=== PATIENT | male | born 1945 | race Caucasian/White ===

== ENCOUNTER 2019-04-05 15:20 | Emergency (ER) | payer MEDICARE, SELFPAY ==
[2019-04-05] VITALS (7 sets, daily range): BP systolic 135–152; BP diastolic 72–79; PULSE 60–70; RESP 12–18; TEMP 35.6; O2SAT 94–99
--- NOTE | 2019-04-05 15:30 | DI.RAD.S_ITS ---
PROCEDURE: XR CHEST 1V INDICATIONS: chest pain TECHNIQUE: One view of the chest was acquired. COMPARISON: None. FINDINGS: Surgical changes and devices: Median sternotomy. Left-sided pacer. Lungs and pleura: Lungs are clear. No pleural effusions or pneumothorax. Mediastinum: Mediastinal contours appear normal. Heart size is normal. Bones and chest wall: No suspicious bony lesions. Overlying soft tissues appear unremarkable. IMPRESSION: No acute process. Dictated by: Lauren Mckay M.D. on 04/05/2019 at 15:52 Approved by: Lauren Mckay M.D. on 04/05/2019 at 15:52
[2019-04-05 15:41] LABS: Add Manual Diff / Slide Review NO; Basophils Absolute Auto 100 /uL (0-100); Basophils Percent Auto 0.8 % (0-2); Eosinophils Absolute Auto 100 /uL (0-450); Eosinophils Percent Auto 1.4 % (2-4); Hematocrit 44.6 % (41-53); Hemoglobin 15.2 g/dL (13.5-17.5); Lymphocytes Absolute Auto 1900 /uL (1100-4500); Lymphocytes Percent Auto 22.9 % (25-40); Mean Corpuscular HGB Conc 34.1 % (30-36); Mean Corpuscular Volume 93.8 fL (80-100); Monocytes Absolute Auto 800 /uL (0-900); Monocytes Percent Auto 9.3 % (3-14); Neutrophils Absolute Auto 5500 /uL (1500-7000); Neutrophils Percent Auto 65.6 % (50-75); Platelet Count 187 X10^3/uL (150-400); Red Blood Cell Count 4.75 X10^6/uL (4.5-5.9); Red Cell Distribution Width 13.3 % (11.6-14.8); White Blood Cell Count 8.4 X10^3/uL (4.5-11.0)
[2019-04-05 15:44] LABS: INR 1.1 (0.9-1.3)
[2019-04-05 15:49] LABS: Alanine Aminotransferase 39 IU/L (21-72); Albumin Globulin Ratio 1.4 (1.0-2.8); Alkaline Phosphatase 63 U/L (38-126); Aspartate Aminotransferase 52 IU/L (17-59); BUN Creatinine Ratio 27.5 (6-22); Bilirubin Total 1.1 mg/dL (0.2-1.3); Blood Urea Nitrogen 22 mg/dL (9-20); Calcium 9.9 mg/dL (8.4-10.2); Carbon Dioxide 24 mmol/L (22-32); Chloride 103 mmol/L (98-107); Creatine Kinase 293 U/L (55-170); Estimated Glomerular Filt Rate > 60.0 mL/min (>60); Globulin 3.6 g/dL (1.7-4.1); Glucose 182 mg/dL (80-110); Sodium 140 mmol/L (137-145); Total Protein 8.6 g/dL (6.3-8.2)
[2019-04-05 15:50] LABS: HEMOLYSIS 74 (0-50); Potassium 4.2 mmol/L (3.4-5.1)
[2019-04-05 16:00] LABS: Troponin I < 0.012 ng/mL (0.01-0.034)
[2019-04-05 16:05] LABS: Creatine Kinase MB 2.83 ng/mL (<2.37)
--- NOTE | 2019-04-05 16:08 | ED.CHESTPAIN ---
HPI - Chest Pain General Chief Complaint: Chest Pain Stated Complaint: CHEST PAIN Time Seen by Provider: 04/05/19 15:40 Source: patient Mode of arrival: ambulatory Limitations: no limitations History of Present Illness HPI narrative: Patient comes emergency department complaining of left-sided chest pain which has now resolved. He states that he started having pains intermittently in his left chest yesterday after working on some house projects. He states that pain went around the edge of his pacemaker and extended toward the sternum patient states it felt possibly like a muscular pain, and that it would come and go he, lasting only briefly. Patient states that he assumed it was from the work he had been doing earlier in the day, and did not think much more of it. The patient continued to have symptoms this morning, but this afternoon, noticed that he developed a different kind of pain between his left breast and his sternum which was constant. Patient states it does not feel as bad as when he had his UT last year, but he was concerned because the pain was steady. Patient states he took nitroglycerin on the way here he and that initially, it decreased the pain from a 5 to a 2. Now he states, the pain is completely gone. Patient did not have any associated symptoms. No nausea, vomiting, shortness of breath, dizziness, or diaphoresis. He states he has otherwise been feeling fine. 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 Patient states that 1 year ago, he had a single-vessel stented, which was not 1 of the bypass vessels. Patient states he has had no problems since with chest pain, though he has had issues with atrial fibrillation, and has had an a blade griggs in the last several months. He also states that after his bypass and valve replacement, he began to have intermittent episodes of extreme bradycardia, during which he would faint. As such, a pacemaker was placed. Patient states last time he had an angiogram was about 1 year ago, at the time of stenting. 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 Related Data Home Medications Medication Instructions Recorded Confirmed losartan [Cozaar] 25 mg PO DAILY #0 08/16/17 04/05/19 Nitrostat 1 tab SUBLINGUAL .ONCE 04/05/19 04/05/19 alprazolam 1 dose PO BEDTIME PRN 04/05/19 04/05/19 aspirin 81 mg PO BID 04/05/19 04/05/19 aspirin 325 mg PO .ONCE 04/05/19 04/05/19 atorvastatin 40 mg PO QPM 04/05/19 04/05/19 metoprolol succinate 25 mg PO BID 04/05/19 04/05/19 multivitamin 1 tab PO DAILY 04/05/19 04/05/19 Review of Systems Constitutional Denies chills, Denies fever(s), Denies lethargy and Denies weakness Eyes Denies change in vision, Denies eye discharge, Denies irritation and Denies loss of vision ENT Ears, Nose, Mouth, and Throat: Denies change in voice, Denies neck pain and Denies sore throat Cardiovascular Reports chest pain, Denies irregular heart rhythm, Denies lightheadedness, Denies palpitations, Denies dyspnea, Denies dyspnea on exertion and Denies orthopnea Respiratory Denies cough, Denies dyspnea, Denies dyspnea on exertion and Denies wheezing Gastrointestinal Gastrointestinal: Denies abdominal pain, Denies change in bowel habits, Denies diarrhea, Denies nausea and Denies vomiting Genitourinary Denies hematuria, Denies flank pain, Denies urinary incontinence and Denies urinary urgency Musculoskeletal Denies neck pain Integumentary/Breasts Denies pruritus, Denies erythema, Denies rash and Denies wounds Neurologic Denies confusion, Denies loss of vision and Denies weakness Psychiatric Denies anxiety, Denies confusion, Denies depression, Denies homicidal ideation and Denies suicidal ideation Endocrine Denies palpitations Hematologic/Lymphatic Denies easy bruising Allergic/Immunologic Denies wheezing [facility] Medical History Pacemaker (Acute) Atrial fibrillation (Acute) CAD (coronary artery disease) (Acute) Surgical History (Updated 04/05/19 @ 16:18 by Susie Alfredo MD) H/O aortic valve replacement (Acute) Hx of CABG (Acute) Social History Smoking Status: Unknown if ever smoked Social History Smoking Status: Unknown if ever smoked Exam Initial Vital Signs Initial Vital Signs: Vital Signs Pulse Rate 70 04/05/19 15:28 Respiratory Rate 14 04/05/19 15:28 Blood Pressure 152/72 H 04/05/19 15:28 Pulse Oximetry 94 04/05/19 15:28 Const General: cooperative and well developed Nutritional Appearance: well nourished Orientation: alert, awake, oriented x3 and not confused [facility] Head: normocephalic and atraumatic Ears: external ears normal Nose: external nose normal and No nasal discharge Face and sinus: face symmetric and No dry mucous membranes Mouth: oral mucosae normal and moist mucous membranes Teeth and gingiva: dentition normal Eyes General: appearance normal, both eyes and all related structures Eyelids: eyelids normal Conjunctivae: conjunctivae normal Sclera: sclerae normal Pupils: PERRL EOM: EOM intact bilaterally Neck Neck: normal visual inspection, trachea midline, No lymphadenopathy, No midline deformity and No JVD Lymphatic: No lymphedema Chest Chest: normal inspection of the chest Resp Effort & Inspection: normal respiratory effort, able to speak in complete sentences, no respiratory distress and no use of accessory muscles Auscultation: clear to auscultation bilaterally, no rales, no rhonchi and no wheezes Cardio Rate: regular rate Rhythm: regular rhythm Heart Sounds: no click, no gallops, no murmurs and no rubs Pulses: normal peripheral pulses GI Inspection: non-distended Palpation: soft, no hepatosplenomegaly, No guarding, No pulsatile mass and No tender Back/Spine/Pelvis Back: No CVA tenderness Cervical Spine: cervical ROM normal and No pain with cervical ROM Thoracic/Lumbar Spine: thoracic and lumbar spine normal to inspection Skin General: no rashes or lesions noted, No jaundice and No petechiae Neuro General: alert, oriented x3, gait normal and no focal motor deficits Speech: speech normal Extrem General: full ROM, no clubbing, cyanosis or edema, no pedal edema and no calf tenderness Psych Appearance: well kempt Mental Status: mental status grossly normal Attitude: cooperative Thought Content: normal and suicidality Judgment: judgment good Course Course Narrative: Patient was worked up with labs and EKG, which were unremarkable. Patient had a number of significant risk factors for coronary artery disease, including history of it, and I felt care should be taken to make sure the patient was not having an issue related to this. As such, repeat troponin was performed, and this was still found to be negative. I felt the patient is stable for discharge home, but I have discussed with him the importance of following up with his primary care physician, and potentially Cardiology. Patient states he will see his PCP soon. We have discussed the usual indications for return. Orders Ordered: ED Orders 04/05/19 15:30 XR chest 1V Stat Complete Blood Count AUTO DIFF Stat Comprehensive Metabolic Panel Stat Prothrombin Time INR Stat Troponin & CK Cardiac Panel Stat EKG-12 Lead Stat Vital Signs - 8 hr 04/05/19 15:28 04/05/19 15:40 04/05/19 15:41 Temperature 96.0 F L Pulse Rate 70 70 66 Respiratory Rate 14 14 18 Blood Pressure 152/72 H 152/72 H Blood Pressure [Left Arm] 152/72 H Pulse Oximetry 94 94 96 MDM - Chest Pain Medical Records Data Attestation: I reviewed the patient's medical records. Lab Data Attestation: I reviewed the patient's lab results. Result diagrams: 04/05/19 15:30 04/05/19 15:30 Lab Results 04/05/19 04/05/19 04/05/19 Range/Units 15:30 15:30 15:30 WBC 8.4 (4.5-11.0) X10^3/uL RBC 4.75 (4.5-5.9) X10^6/uL Hgb 15.2 (13.5-17.5) g/dL Hct 44.6 (41-53) % MCV 93.8 (80-100) fL MCH 32.0 (26-34) PG MCHC 34.1 (30-36) % RDW 13.3 (11.6-14.8) % Plt Count 187 (150-400) X10^3/uL Neut % (Auto) 65.6 (50-75) % Lymph % (Auto) 22.9 L (25-40) % [place] % (Auto) 9.3 (3-14) % Eos % (Auto) 1.4 L (2-4) % Baso % (Auto) 0.8 (0-2) % Neut # (Auto) 5500 (3390-9121) /uL Lymph # (Auto) 1900 (9982-3786) /uL [place] # (Auto) 800 (0-900) /uL Eos # (Auto) 100 (0-450) /uL Baso # (Auto) 100 (0-100) /uL PT 13.0 H (10.1-12.7) SECONDS INR 1.1 (0.9-1.3) Sodium 140 (137-145) mmol/L Potassium 4.2 (3.4-5.1) mmol/L Chloride 103 (98-107) mmol/L Carbon Dioxide 24 (22-32) mmol/L BUN 22 H (9-20) mg/dL Creatinine 0.80 (0.66-1.25) mg/dL Estimated GFR > 60.0 (>60) mL/min BUN/Creatinine Ratio 27.5 H (6-22) Glucose 182 H (80-110) mg/dL Calcium 9.9 (8.4-10.2) mg/dL Total Bilirubin 1.1 (0.2-1.3) mg/dL AST 52 (17-59) IU/L ALT 39 (21-72) IU/L Alkaline Phosphatase 63 (38-126) U/L Total Creatine Kinase 293 H (55-170) U/L CK-MB (CK-2) 2.83 H (<2.37) ng/mL CK-MB (CK-2) Rel Index 1.0 L (1.5-5.0) % Troponin I < 0.012 (0.01-0.034) ng/mL Total Protein 8.6 H (6.3-8.2) g/dL Albumin 5.0 (3.5-5.0) g/dL Globulin 3.6 (1.7-4.1) g/dL Albumin/Globulin Ratio 1.4 (1.0-2.8) Urine RBC (0-5/HPF) Urine WBC (0-5/HPF) Urine Bacteria (None) Ur Culture Indicated? Micro UA Comment 04/05/19 04/05/19 Range/Units 17:45 18:00 WBC (4.5-11.0) X10^3/uL RBC (4.5-5.9) X10^6/uL Hgb (13.5-17.5) g/dL Hct (41-53) % MCV (80-100) fL MCH (26-34) PG MCHC (30-36) % RDW (11.6-14.8) % Plt Count (150-400) X10^3/uL Neut % (Auto) (50-75) % Lymph % (Auto) (25-40) % [place] % (Auto) (3-14) % Eos % (Auto) (2-4) % Baso % (Auto) (0-2) % Neut # (Auto) (5755-0147) /uL Lymph # (Auto) (7616-5935) /uL [place] # (Auto) (0-900) /uL Eos # (Auto) (0-450) /uL Baso # (Auto) (0-100) /uL PT (10.1-12.7) SECONDS INR (0.9-1.3) Sodium (137-145) mmol/L Potassium (3.4-5.1) mmol/L Chloride (98-107) mmol/L Carbon Dioxide (22-32) mmol/L BUN (9-20) mg/dL Creatinine (0.66-1.25) mg/dL Estimated GFR (>60) mL/min BUN/Creatinine Ratio (6-22) Glucose (80-110) mg/dL Calcium (8.4-10.2) mg/dL Total Bilirubin (0.2-1.3) mg/dL AST (17-59) IU/L ALT (21-72) IU/L Alkaline Phosphatase (38-126) U/L Total Creatine Kinase 272 H (55-170) U/L CK-MB (CK-2) 2.36 (<2.37) ng/mL CK-MB (CK-2) Rel Index 0.9 L (1.5-5.0) % Troponin I < 0.012 (0.01-0.034) ng/mL Total Protein (6.3-8.2) g/dL Albumin (3.5-5.0) g/dL Globulin (1.7-4.1) g/dL Albumin/Globulin Ratio (1.0-2.8) Urine RBC None seen (0-5/HPF) Urine WBC None seen (0-5/HPF) Urine Bacteria None seen (None) Ur Culture Indicated? Cult not indicated Micro UA Comment Microscopic normal Imaging Data Chest x-ray: Radiologist's impression: [address] [address] XRay Report Signed Patient: Jayme Montesinos LMR#: [id number] : 4Acct:[id number] Age/Sex: 73 / MDate of Service: 04/05/19 Loc: ED Accession Number: [id number] Procedure: XR chest 1V Ordering Provider: Susie Alfredo MD PROCEDURE: XR CHEST 1V INDICATIONS: chest pain TECHNIQUE: One view of the chest was acquired. COMPARISON: None. FINDINGS: Surgical changes and devices: Median sternotomy. Left-sided pacer. Lungs and pleura: Lungs are clear. No pleural effusions or pneumothorax. Mediastinum: Mediastinal contours appear normal. Heart size is normal. Bones and chest wall: No suspicious bony lesions. Overlying soft tissues appear unremarkable. IMPRESSION: No acute process. Dictated by: Lauren Mckay M.D. on 04/05/2019 at 15:52 Approved by: Lauren Mckay M.D. on 04/05/2019 at 15:52 Discharge Plan Departure Patient Disposition: Home Clinical Impression: Chest pain Qualifiers: Chest pain type: unspecified Qualified Code(s): R07.9 - Chest pain, unspecified Discharge Date/Time: 04/05/19 19:19 Interventions: ED Discharge Assessment Last Done: 04/05/19 19:19 Instructions: DI for Chest Pain Activity Restrictions/Additional Instructions: Your labs, including repeat cardiac enzymes, look good. Your pain may have been an episode of angina, or it may not have been related to your heart. However, given your history, it is important that you call the cardiology office tomorrow and ask for an appointment to be seen within the next 2 weeks. If you find that you are having repeated and increasingly frequent episodes of this kind of chest pain, especially with exertion, then you need to be re-evaluated without delay. Prescriptions: No Action losartan [Cozaar] 25 MG tablet 25 mg PO DAILY Qty: 0 RF: 0 atorvastatin 40 mg tablet 40 mg PO QPM RF: 0 metoprolol succinate 50 mg tablet extended release 24 hr 25 mg PO BID RF: 0 multivitamin Tablet 1 tab PO DAILY RF: 0 aspirin 325 mg Tablet 325 mg PO .ONCE RF: 0 aspirin 81 mg Tablet,Delayed Release (Dr/Ec) 81 mg PO BID RF: 0 Nitrostat 1 tab Sublingual .ONCE RF: 0 alprazolam 1 dose PO BEDTIME PRN (Reason: Sleep) RF: 0 Referrals: [facility] [Provider Group] (Please call to request an appointment for within the next 1-2 weeks to follow-up your ER visit.) Cj Pepe MD [Primary Care Provider] -
--- NOTE | 2019-04-05 16:20 | ED_ITS ---
HPI - Chest Pain General Chief Complaint: Chest Pain Stated Complaint: CHEST PAIN Time Seen by Provider: 04/05/19 15:40 Source: patient Mode of arrival: ambulatory Limitations: no limitations History of Present Illness HPI narrative: Patient comes emergency department complaining of left-sided chest pain which has now resolved. He states that he started having pains intermittently in his left chest yesterday after working on some house projects. He states that pain went around the edge of his pacemaker and extended toward the sternum patient states it felt possibly like a muscular pain, and that it would come and go he, lasting only briefly. Patient states that he assumed it was from the work he had been doing earlier in the day, and did not think much more of it. The patient continued to have symptoms this morning, but this afternoon, noticed that he developed a different kind of pain between his left breast and his sternum which was constant. Patient states it does not feel as bad as when he had his NE last year, but he was concerned because the pain was steady. Patient states he took nitroglycerin on the way here he and that initially, it decreased the pain from a 5 to a 2. Now he states, the pain is completely gone. Patient did not have any associated symptoms. No nausea, vomiting, shortness of breath, dizziness, or diaphoresis. He states he has otherwise been feeling fine. 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 Patient states that 1 year ago, he had a single-vessel stented, which was not 1 of the b ypass vessels. Patient states he has had no problems since with chest pain, though he has had issues with atrial fibrillation, and has had an a blade griggs in the last several months. He also states that after his bypass and valve replacement, he began to have intermittent episodes of extreme bradycardia, during which he would faint. As such, a pacemaker was placed. Patient states last time he had an angiogram was about 1 year ago, at the time of stenting. 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 Related Data Home Medications Medication Instructions Recorded Confirmed losartan [Cozaar] 25 mg PO DAILY #0 08/16/17 04/05/19 Nitrostat 1 tab SUBLINGUAL .ONCE 04/05/19 04/05/19 alprazolam 1 dose PO BEDTIME PRN 04/05/19 04/05/19 aspirin 81 mg PO BID 04/05/19 04/05/19 aspirin 325 mg PO .ONCE 04/05/19 04/05/19 atorvastatin 40 mg PO QPM 04/05/19 04/05/19 metoprolol succinate 25 mg PO BID 04/05/19 04/05/19 multivitamin 1 tab PO DAILY 04/05/19 04/05/19 Review of Systems Constitutional Denies chills, Denies fever(s), Denies lethargy and Denies weakness Eyes Denies change in vision, Denies eye discharge, Denies irritation and Denies loss of vision ENT Ears, Nose, Mouth, and Throat: Denies change in voice, Denies neck pain and Denies sore throat Cardiovascular Reports chest pain, Denies irregular heart rhythm, Denies lightheadedness, Denies palpitations, Denies dyspnea, Denies dyspnea on exertion and Denies orthopnea Respiratory Denies cough, Denies dyspnea, Denies dyspnea on exertion and Denies wheezing Gastrointestinal Gastrointestinal: Denies abdominal pain, Denies change in bowel habits, Denies diarrhea, Denies nausea and Denies vomiting Genitourinary Denies hematuria, Denies flank pain, Denies urinary incontinence and Denies urinary urgency Musculoskeletal Denies neck pain Integumentary/Breasts Denies pruritus, Denies erythema, Denies rash and Denies wounds Neurologic Denies confusion, Denies loss of vision and Denies weakness Psychiatric Denies anxiety, Denies confusion, Denies depression, Denies homicidal ideation and Denies suicidal ideation Endocrine Denies palpitations Hematologic/Lymphatic Denies easy bruising Allergic/Immunologic Denies wheezing [facility] Medical History Pacemaker (Acute) Atrial fibrillation (Acute) CAD (coronary artery disease) (Acute) Surgical History (Updated 04/05/19 @ 16:18 by Susie Alfredo MD) H/O aortic valve replacement (Acute) Hx of CABG (Acute) Social History Smoking Status: Unknown if ever smoked Social History Smoking Status: Unknown if ever smoked Exam Initial Vital Signs Initial Vital Signs: Vital Signs Pulse Rate 70 05/15/19 15:28 Respiratory Rate 14 04/05/19 15:28 Blood Pressure 152/72 H 04/05/19 15:28 Pulse Oximetry 94 04/05/19 15:28 Const General: cooperative and well developed Nutritional Appearance: well nourished Orientation: alert, awake, oriented x3 and not confused [facility] Head: normocephalic and atraumatic Ears: external ears normal Nose: external nose normal and No nasal discharge Face and sinus: face symmetric and No dry mucous membranes Mouth: oral mucosae normal and moist mucous membranes Teeth and gingiva: dentition normal Eyes General: appearance normal, both eyes and all related structures Eyelids: eyelids normal Conjunctivae: conjunctivae normal Sclera: sclerae normal Pupils: PERRL EOM: EOM intact bilaterally Neck Neck: normal visual inspection, trachea midline, No lymphadenopathy, No midline deformity and No JVD Lymphatic: No lymphedema Chest Chest: normal inspection of the chest Resp Effort & Inspection: normal respiratory effort, able to speak in complete sentences, no respiratory distress and no use of accessory muscles Auscultation: clear to auscultation bilaterally, no rales, no rhonchi and no wheezes Cardio Rate: regular rate Rhythm: regular rhythm Heart Sounds: no click, no gallops, no murmurs and no rubs Pulses: normal peripheral pulses GI Inspection: non-distended Palpation: soft, no hepatosplenomegaly, No guarding, No pulsatile mass and No tender Back/Spine/Pelvis Back: No CVA tenderness Cervical Spine: cervical ROM normal and No pain with cervical ROM Thoracic/Lumbar Spine: thoracic and lumbar spine normal to inspection Skin General: no rashes or lesions noted, No jaundice and No petechiae Neuro General: alert, oriented x3, gait normal and no focal motor deficits Speech: speech normal Extrem General: full ROM, no clubbing, cyanosis or edema, no pedal edema and no calf tenderness Psych Appearance: well kempt Mental Status: mental status grossly normal Attitude: cooperative Thought Content: normal and suicidality Judgment: judgment good Course Course Narrative: Patient was worked up with labs and EKG, which were unremarkable. Patient had a number of significant risk factors for coronary a rtery disease, including history of it, and I felt care should be taken to make sure the patient was not having an issue related to this. As such, repeat troponin was performed, and this was still found to be negative. I felt the patient is stable for discharge home, but I have discussed with him the importance of following up with his primary care physician, and potentially Cardiology. Patient states he will see his PCP soon. We have discussed the usual indications for return. Orders Ordered: ED Orders 04/05/19 15:30 XR chest 1V Stat Complete Blood Count AUTO DIFF Stat Comprehensive Metabolic Panel Stat Prothrombin Time INR Stat Troponin & CK Cardiac Panel Stat EKG-12 Lead Stat Vital Signs - 8 hr 04/05/19 15:28 04/05/19 15:40 04/05/19 15:41 Temperature 96.0 F L Pulse Rate 70 70 66 Respiratory Rate 14 14 18 Blood Pressure 152/72 H 152/72 H Blood Pressure [Left Arm] 152/72 H Pulse Oximetry 94 94 96 MDM - Chest Pain Medical Records Data Attestation: I reviewed the patient's medical records. Lab Data Attestation: I reviewed the patient's lab results. Result diagrams: 04/05/19 15:30 04/05/19 15:30 Lab Results 04/05/19 04/05/19 04/05/19 Range/Units 15:30 15:30 15:30 WBC 8.4 (4.5-11.0) X10^3/uL RBC 4.75 (4.5-5.9) X10^6/uL Hgb 15.2 (13.5-17.5) g/dL Hct 44.6 (41-53) % MCV 93.8 (80-100) fL MCH 32.0 (26-34) PG MCHC 34.1 (30-36) % RDW 13.3 (11.6-14.8) % Plt Count 187 (150-400) X10^3/uL Neut % (Auto) 65.6 (50-75) % Lymph % (Auto) 22.9 L (25-40) % [place] % (Auto) 9.3 (3-14) % Eos % (Auto) 1.4 L (2-4) % Baso % (Auto) 0.8 (0-2) % Neut # (Auto) 5500 (4714-2116) /uL Lymph # (Auto) 1900 (4111-4857) /uL [place] # (Auto) 800 (0-900) /uL Eos # (Auto) 100 (0-450) /uL Baso # (Auto) 100 (0-100) /uL PT 13.0 H (10.1-12.7) SECONDS INR 1.1 (0.9-1.3) Sodium 140 (137-145) mmol/L Potassium 4.2 (3.4-5.1) mmol/L Chloride 103 (98-107) mmol/L Carbon Dioxide 24 (22-32) mmol/L BUN 22 H (9-20) mg/dL Creatinine 0.80 (0.66-1.25) mg/dL Estimated GFR > 60.0 (>60) mL/min BUN/Creatinine Ratio 27.5 H (6-22) Glucose 182 H (80-110) mg/dL Calcium 9.9 (8.4-10.2) mg/dL Total Bilirubin 1.1 (0.2-1.3) mg/dL AST 52 (17-59) IU/L ALT 39 (21-72) IU/L Alkaline Phosphatase 63 (38-126) U/L Total Creatine Kinase 293 H (55-170) U/L CK-MB (CK-2) 2.83 H (<2.37) ng/mL CK-MB (CK-2) Rel Index 1.0 L (1.5-5.0) % Troponin I < 0.012 (0.01-0.034) ng/mL Total Protein 8.6 H (6.3-8.2) g/dL Albumin 5.0 (3.5-5.0) g/dL Globulin 3.6 (1.7-4.1) g/dL Albumin/Globulin Ratio 1.4 (1.0-2.8) Urine RBC (0-5/HPF) Urine WBC (0-5/HPF) Urine Bacteria (None) Ur Culture Indicated? Micro UA Comment 04/05/19 04/05/19 Range/Units 17:45 18:00 WBC (4.5-11.0) X10^3/uL RBC (4.5-5.9) X10^6/uL Hgb (13.5-17.5) g/dL Hct (41-53) % MCV (80-100) fL MCH (26-34) PG MCHC (30-36) % RDW (11.6-14.8) % Plt Count (150-400) X10^3/uL Neut % (Auto) (50-75) % Lymph % (Auto) (25-40) % [place] % (Auto) (3-14) % Eos % (Auto) (2-4) % Baso % (Auto) (0-2) % Neut # (Auto) (4299-1394) /uL Lymph # (Auto) (1441-2576) /uL [place] # (Auto) (0-900) /uL Eos # (Auto) (0-450) /uL Baso # (Auto) (0-100) /uL PT (10.1-12.7) SECONDS INR (0.9-1.3) Sodium (137-145) mmol/L Potassium (3.4-5.1) mmol/L Chloride (98-107) mmol/L Carbon Dioxide (22-32) mmol/L BUN (9-20) mg/dL Creatinine (0.66-1.25) mg/dL Estimated GFR (>60) mL/min BUN/Creatinine Ratio (6-22) Glucose (80-110) mg/dL Calcium (8.4-10.2) mg/dL Total Bilirubin (0.2-1.3) mg/dL AST (17-59) IU/L ALT (21-72) IU/L Alkaline Phosphatase (38-126) U/L Total Creatine Kinase 272 H (55-170) U/L CK-MB (CK-2) 2.36 (<2.37) ng/mL CK-MB (CK-2) Rel Index 0.9 L (1.5-5.0) % Troponin I < 0.012 (0.01-0.034) ng/mL Total Protein (6.3-8.2) g/dL Albumin (3.5-5.0) g/dL Globulin (1.7-4.1) g/dL Albumin/Globulin Ratio (1.0-2.8) Urine RBC None seen (0-5/HPF) Urine WBC None seen (0-5/HPF) Urine Bacteria None seen (None) Ur Culture Indicated? Cult not indicated Micro UA Comment Microscopic normal Imaging Data Chest x-ray: Radiologist's impression: [address] [address] XRay Report Signed Patient: Jayme Montesinos LMR#: [id number] : 4Acct:[id number] Age/Sex: 73 / MDate of Service: 04/05/19 Loc: ED Accession Number: [id number] Procedure: XR chest 1V Ordering Provider: Susie Alfredo MD PROCEDURE: XR CHEST 1V INDICATIONS: chest pain TECHNIQUE: One view of the chest was acquired. COMPARISON: None. FINDINGS: Surgical changes and devices: Median sternotomy. Left-sided pacer. Lungs and pleura: Lungs are clear. No pleural effusions or pneumothorax. Mediastinum: Mediastinal contours appear normal. Heart size is normal. Bones and chest wall: No suspicious bony lesions. Overlying soft tissues appear unremarkable. IMPRESSION: No acute process. Dictated by: Lauren Mckay M.D. on 04/05/2019 at 15:52 Approved by: Lauren Mckay M.D. on 04/05/2019 at 15:52 Discharge Plan Departure Patient Disposition: Home Clinical Impression: Chest pain Qualifiers: Chest pain type: unspecified Qualified Code(s): R07.9 - Chest pain, unspecified Discharge Date/Time: 04/05/19 19:19 Interventions: ED Discharge Assessment Last Done: 04/05/19 19:19 Instructions: DI for Chest Pain Activity Restrictions/Additional Instructions: Your labs, including repeat cardiac enzymes, look good. Your pain may have been an episode of angina, or it may not have been related to your heart. However, given your history, it is important that you call the cardiology office tomorrow and ask for an appointment to be seen within the next 2 weeks. If you find that you are having repeated and increasingly frequent episodes of this kind of chest pain, especially with exertion, then you need to be re-evaluated without delay. Prescriptions: No Action losartan [Cozaar] 25 MG tablet 25 mg PO DAILY Qty: 0 RF: 0 atorvastatin 40 mg tablet 40 mg PO QPM RF: 0 metoprolol succinate 50 mg tablet extended release 24 hr 25 mg PO BID RF: 0 multivitamin Tablet 1 tab PO DAILY RF: 0 aspirin 325 mg Tablet 325 mg PO .ONCE RF: 0 aspirin 81 mg Tablet,Delayed Release (Dr/Ec) 81 mg PO BID RF: 0 Nitrostat 1 tab Sublingual .ONCE RF: 0 alprazolam 1 dose PO BEDTIME PRN (Reason: Sleep) RF: 0 Referrals: [facility] [Provider Group] (Please call to request an appointment for within the next 1-2 weeks to follow-up your ER visit.) Cj Pepe MD [Primary Care Provider] -
[2019-04-05 17:50] LABS: Bacteria Urine None Seen; RBC Urine None Seen (0-5/HPF); WBC Urine None Seen (0-5/HPF)
[2019-04-05 17:59] LABS: Culture Indicated Urine Cult Not Indicated; Urine Comments Microscopic Normal
[2019-04-05 18:14] LABS: Creatine Kinase 272 U/L (55-170)
[2019-04-05 18:27] LABS: Troponin I < 0.012 ng/mL (0.01-0.034)
[2019-04-05 18:30] LABS: CKMB % Relative Index 0.9 % (1.5-5.0); Creatine Kinase MB 2.36 ng/mL (<2.37)
== END 2019-04-05 19:19 | disposition home or self-care (01) ==
PROVIDERS: Emergency Provider Emergency Medicine; Family Provider Family Medicine; PCP Family Medicine
DX: R07.9 Chest pain, unspecified (principal)
CPT/HCPCS: 36591; 71045; 80053; 81015; 82550; 82553; 84484; 85025; 85610; 93005; 93010; 93041; 99283; 99285

== ENCOUNTER → 2019-08-02 11:31 | Outpatient (CLI) | payer MEDICARE, SELFPAY ==
--- NOTE | 2019-08-02 11:44 | DI.CT.S_ITS ---
PROCEDURE: CT KIDNEY URETER BLADDER (KUB) INDICATIONS: Calculus of kidney TECHNIQUE: Noncontrast 5 mm thick sections acquired from the diaphragms to the symphysis. 5 mm thick coronal and sagittal reformats were then performed. For radiation dose reduction, the following was used: automated exposure control, adjustment of mA and/or kV according to patient size. COMPARISON: [facility], [place], ABDOMEN COMPLETE, 06/07/2017, 8:43. FINDINGS: Image quality: Excellent. Lung bases: Lung bases are clear. Heart size is normal. Urinary system: Both kidneys are normal in size. Left renal cyst is present measuring 40 mm. Smaller cysts are noted bilaterally. Punctate calcification versus arterial calcification is noted within the midpole of the right kidney. No hydronephrosis or perinephric fat stranding. Both ureters appear non-dilated throughout their expected courses. Bladder wall thickness is normal; no calcified bladder stones. Prostate gland is mildly prominent. Right lateral bladder diverticula is noted. Other solid organs: Liver is mildly prominent with steatosis. Gallbladder is unremarkable. Pancreas is normal in contours. Spleen is normal in size. No adrenal nodules. Peritoneum and bowel: Unenhanced bowel loops demonstrate normal wall thickness and caliber. No free fluid or air. Colonic diverticula are present without associated inflammatory change. Nodes and vessels: No retroperitoneal or mesenteric adenopathy by size criteria. Aorta and inferior vena cava are normal in caliber. Abdominal wall: No ventral hernias. Pelvis: No free pelvic fluid. No inguinal hernias or adenopathy. Bones: No suspicious bony lesions. No vertebral body compression fractures. IMPRESSION: 1. Punctate right nephrolithiasis versus vascular calcification. No obstruction. 2. No ureteral or bladder calculi. 3. Bilateral renal cysts. 4. Mild prostate hypertrophy. Recommend correlation to PSA levels. Dictated by: Sarah De León M.D. on 08/02/2019 at 16:40 Approved by: Sarah De León M.D. on 08/02/2019 at 16:45
== END ==
PROVIDERS: PCP Family Medicine; Visit Provider Physician Assistant
DX: N20.0 Calculus of kidney (principal); N28.1 Cyst of kidney, acquired; K76.0 Fatty (change of) liver, not elsewhere classified; N40.0 Benign prostatic hyperplasia without lower urinary tract symptoms
CPT/HCPCS: 74176

== ENCOUNTER → 2019-08-09 11:14 | Outpatient (CLI) | payer MEDICARE, SELFPAY ==
--- NOTE | 2019-08-09 11:43 | DI.CT.S_ITS ---
PROCEDURE: CT ABDOMEN WO/W CON INDICATIONS: Cyst of kidney, acquired TECHNIQUE: Optional 5 mm thick noncontrast images acquired from the diaphragm to the iliac crests. After the administration of intravenous contrast, 5 mm thick images again acquired from the diaphragm to the iliac crests in the arterial and urographic phases. 5 mm thick coronal and sagittal reformats were then acquired. For radiation dose reduction, the following was used: automated exposure control, adjustment of mA and/or kV according to patient size. COMPARISON: [facility], CT, CT KIDNEY URETER BLADDER (KUB), 08/02/2019, 11:37. FINDINGS: Image quality: Excellent. Lung bases: Lung bases are clear. Heart size is normal. Pacemaker leads and sternotomy wires are seen, unchanged from prior study. Genitourinary: Bilateral kidneys are normal in size. 3.6 x 4.7 cm exophytic upper pole left renal cyst is again seen, unchanged from previous study. Smaller bilateral renal cortical cysts are also noted and measures up to 1.2 cm in size in the anterior cortex of lower pole right kidney. No renal stone hydronephrosis. No perinephric fat stranding or fluid. No gross enhancing renal lesion. Visualized bilateral proximal ureters show no gross abnormality. Other solid organs: Liver is normal in size and enhancement. Hepatic steatosis is seen. Gallbladder is within normal limits. Biliary system is non dilated. Pancreas enhances normally. Spleen is normal in size and enhancement. No adrenal nodules. Peritoneum and bowel: Unenhanced bowel loops are normal in wall thickness and caliber. No free fluid or air. There is a small hiatal hernia. Nodes and vessels: No retroperitoneal or mesenteric adenopathy by size criteria. Aorta and inferior vena cava are normal in caliber. Bones: No suspicious bony lesions. Chronic appearing anterior wedge compression deformities involving T10, L1 and L3 vertebral bodies are seen. No acute compression fracture. Miscellaneous: No ventral hernias. IMPRESSION: 1. Bilateral renal cysts as above. No enhancing renal lesion. No renal stone hydronephrosis. 2. Chronic appearing anterior wedge compression deformities involving T10, L1 and L3 vertebral bodies. 3. Hepatic steatosis. 4. Small hiatal hernia. No free fluid of air. Dictated by: Dillon Fields M.D. on 08/09/2019 at 13:09 Approved by: Dillon Fields M.D. on 08/09/2019 at 13:25
== END ==
PROVIDERS: Family Provider Family Medicine; PCP Family Medicine; Visit Provider Physician Assistant
DX: N28.1 Cyst of kidney, acquired (principal); K76.0 Fatty (change of) liver, not elsewhere classified; K44.9 Diaphragmatic hernia without obstruction or gangrene; Z95.0 Presence of cardiac pacemaker
CPT/HCPCS: 74170; Q9967

== ENCOUNTER → 2020-07-22 11:08 | Outpatient (CLI) | payer MEDICARE, SELFPAY ==
--- NOTE | 2020-07-22 | DI.US.S_ITS ---
PROCEDURE: US RENAL COMPLETE INDICATIONS: CYST TECHNIQUE: Real-time scanning was performed of the kidneys and bladder, with image documentation. COMPARISON: [facility], CT, CT KIDNEY URETER BLADDER (KUB), 08/02/2019, 11:37. [facility], CT, CT ABDOMEN WO/W CON, 08/09/2019, 11:25. FINDINGS: Kidneys: Kidneys are normal in size. Right kidney measures 12.6 cm long; left kidney measures 10.3 cm long. Bilateral renal cortices appear visibly normal in thickness. Renal cortical echotexture is normal. No hydronephrosis or nephrolithiasis. Multiple bilateral renal cysts. There are 2 cysts on the right, largest measuring 1.3 x 1.8 x 2.0 cm. There are 3 left renal cysts with the largest measuring 4.3 x 4.3 x 5.0 cm. No suspicious solid components identified within the cysts. No suspicious solid mass lesions. Bladder: Pre-void bladder volume is 562 mL. Post-void residual is 494 mL. Pre-void images demonstrate trabeculated urinary bladder wall as well as a enlarged prostate. This is similar to prior CT evaluation no intraluminal masses or stones. On pre-void images, the bilateral ureteral jets are noted with color Doppler interrogation. (Of note, ureteral jets may not be detectable in up to 25% of cases due to insufficient differences in specific gravity between ureteral and bladder urine). Miscellaneous: No free pelvic fluid. IMPRESSION: 1. Large postvoid residual volume, trabeculated appearance of the urinary bladder wall, and enlarged prostate likely related to chronic outlet obstruction. No definite intraluminal mass lesions identified in the urinary bladder. 2. Multiple bilateral renal cysts which are simple in sonographic appearance. Otherwise, unremarkable sonographic evaluation of the bilateral kidneys without evidence for obstructive uropathy. Dictated by: Cody Thomson M.D. on 07/22/2020 at 17:37 Approved by: Cody Thomson M.D. on 07/22/2020 at 17:55
== END ==
PROVIDERS: Family Provider Family Medicine; PCP Family Medicine; Referring Provider Physician Assistant; Visit Provider Physician Assistant
DX: N28.1 Cyst of kidney, acquired (principal); N40.0 Benign prostatic hyperplasia without lower urinary tract symptoms
CPT/HCPCS: 76770

== ENCOUNTER → 2022-06-09 07:09 | Outpatient (CLI) | payer MEDICARE, SELFPAY ==
[2022-06-09 11:53] LABS: COVID19 -Nasal RAPID Negative (Negative)
== END ==
PROVIDERS: Family Provider Family Medicine; PCP Family Medicine; Visit Provider Surgery
DX: Z20.822 Contact with and (suspected) exposure to COVID-19 (principal); Z01.812 Encounter for preprocedural laboratory examination
CPT/HCPCS: 87635; C9803

== ENCOUNTER 2022-06-10 09:50 | Day surgery (SDC) | payer MEDICARE, SELFPAY ==
[2022-06-10] VITALS (7 sets, daily range): BP systolic 108–155; BP diastolic 61–83; PULSE 58–96; RESP 12–18; TEMP 36.1–36.3; O2SAT 94–100; BMI 21.4
[2022-06-10] MEDS: LACTATED RINGERS 1,000 ML 42 ML IV (10:34)
--- NOTE | 2022-06-10 10:50 | PM.HP.1 ---
History of Present Illness History of Present Illness Date Patient Seen: 06/10/22 Time Patient Seen: 10:50 Chief complaint: Colonoscopy Narrative: H/o colon polyps. last scope 5 years ago. No issue now. Patient History Medical History Atrial fibrillation CAD (coronary artery disease) Diabetes mellitus, type II Hypertension Kidney stones Pacemaker Surgical History H/O aortic valve replacement Hx of CABG Family & Social History Social History: household members spouse Tobacco & Substance use: Smoking Status Never smoker alcohol intake former Substance Use Type does not use Meds Home Medications and Allergies Home Medications Medication Instructions Recorded Confirmed Type losartan 25 mg tablet (Cozaar) 50 mg PO DAILY ##0 08/16/17 06/10/22 History Nitrostat 1 tab sublingual .ONCE 04/05/19 06/10/22 History alprazolam 0.5 mg tablet 0.5 mg PO TID PRN Insomnia 04/05/19 06/10/22 History aspirin 81 mg tablet,delayed 81 mg PO BID 04/05/19 06/10/22 History release atorvastatin 40 mg tablet 40 mg PO QPM 04/05/19 06/10/22 History metoprolol succinate 50 mg 25 mg PO BID 04/05/19 06/10/22 History tablet,extended release 24 hr multivitamin 1 tab PO DAILY 04/05/19 06/10/22 History acetaminophen 500 mg tablet 1,000 mg PO TID PRN Pain (Scale 06/10/22 06/10/22 History Score 1-3) ibuprofen 200 mg tablet 400 mg PO Q8H PRN Pain (Scale 06/10/22 06/10/22 History Score 1-3) metformin 500 mg tablet,extended 1 tab PO BID 06/10/22 06/10/22 History release 24 hr omeprazole 10 mg capsule,delayed 10 mg PO DAILY 06/10/22 06/10/22 History release tamsulosin 0.4 mg capsule 1 cap PO DAILY 06/10/22 06/10/22 History Allergies Allergy/AdvReac Type Severity Reaction Status Date / Time No Known Drug Allergies Allergy Verified 06/10/22 10:04 Review of Systems Review of Systems ROS: Yes All systems reviewed with the patient and are negative except as otherwise documented Exam Vital Signs (past 8 hours): - 06/10/22 10:36 Temperature 97.3 F L Pulse Rate 96 H Respiratory Rate 16 Blood Pressure 155/83 H Pulse Oximetry 100 Oxygen Delivery Method Room Air Oxygen Delivery Method Room Air Const General: cooperative and comfortable Nutritional Appearance: average body habitus Orientation: alert, awake and oriented x3 HENMT Head: normal to inspection, normocephalic and atraumatic Eyes Sclera: sclerae normal Neck Neck: trachea midline Chest Chest: normal inspection of the chest Resp Effort & Inspection: normal respiratory effort and able to speak in complete sentences Cardio Rate: regular rate Rhythm: abnormal rhythm GI Inspection: normal to inspection Palpation: soft Skin General: atrophy Neuro General: patient alert, patient awake and patient oriented x3 Cognition: normal cognition Extrem General: normal to inspection and full ROM Psych Appearance: grossly normal Mental Status: mental status grossly normal Affect: normal affect Judgment: judgment good Assessment & Plan Assessment & Plan narrative: h/o colon cancer colonoscopy with moderate sedation COVID-19 COVID-19 status: Negative Time Spent With Patient Time with patient: less than 30 minutes Critical Care time: I spent a total of [] minutes of critical care time on this patient's care today; this time is exclusive of procedural time.
--- NOTE | 2022-06-10 10:53 | PM.OP.COLON ---
Operative Date/Time/Diagnoses Date of procedure: 06/10/22 Time of procedure: 10:53 Pre-op diagnosis: h/o colon polyp Post-op diagnosis: same Procedure & Clinicians Study performed: colonoscopy with moderate sedation Same procedure as scheduled: Yes Indications: h/o colon polyp Surgeon: Missy Wharton Procedure Notes SCOAP/Timeout: done Procedure in detail: Preop diagnosis: History of colon polyps Postop diagnosis: Same Operative procedure: Colonoscopy with moderate sedation Anesthetic: 4 mg Versed, 125 mcg fentanyl Findings: Severe descending colon diverticulosis, no polyps, old tattoo sites in the ascending colon Procedure: Patient placed in a lateral position. Rectal exam performed showing normal tone no masses. Colonoscope was inserted into the rectum advanced to ileocecal valve with minimal difficulty. Insufflation extraction scope with the above findings. Retroflexion was performed in the rectum. Impression: No polyps identified at this time. Severe diverticulosis of the descending colon. Previous tattooing seen in the ascending colon with no associated abnormalities Sedation minutes: 14 Findings: divertiulosis Specimen(s): none sent Complications: none Post-procedure Recommendations: Colonoscopy in 5 years Follow up: as needed Disposition: PACU
[2022-06-10] MEDS: MIDAZOLAM 5 MG/5 ML VIAL 4 MG IV (11:00)
[2022-06-10] MEDS: fentaNYL 250 MCG/5 ML INJ 125 MCG IV (11:00)
== END 2022-06-10 12:00 | disposition home or self-care (01) ==
PROVIDERS: Family Provider Family Medicine; Referring Provider Surgery; Visit Provider Surgery
PROC: 0DJD8ZZ Inspection of Lower Intestinal Tract, Via Natural or Artificial Opening Endoscopic (ICD-10-PCS; CPT 45378; principal; 2022-06-10 11:00)
DX: Z12.11 Encounter for screening for malignant neoplasm of colon (principal); Z86.010 Personal history of colon polyps; K57.30 Diverticulosis of large intestine without perforation or abscess without bleeding; I48.91 Unspecified atrial fibrillation; I25.10 Atherosclerotic heart disease of native coronary artery without angina pectoris; I10 Essential (primary) hypertension; E11.9 Type 2 diabetes mellitus without complications; Z95.0 Presence of cardiac pacemaker; Z95.1 Presence of aortocoronary bypass graft; Z79.84 Long term (current) use of oral hypoglycemic drugs
CPT/HCPCS: G0105; 99152; J2250; J3010

== ENCOUNTER → 2024-01-26 | Outpatient (CLI) | payer MEDICARE, OTHER, SELFPAY ==
--- NOTE | 2024-01-26 13:35 | DI.ECHO.S_ITS ---
[facility] +---------+ : : [address] : [place] : : : : [id number] : : : : Phone: [phone]+ Echocardiogram Report + + :Name: LUIS DE LEÓN Study Date: 01/26/2024 Height: 69 in : :[facility] ReadingLocation: Weight: 145 lb : : Gender: Male BSA: 1.8 m2 : :: 1945 Age: 78 yrs BP: 118/78 mmHg: :Reason For Study: CABG : :Ordering Physician: : :NOHELIA VERDUGO Performed By: Krystle Lopez : :Referring: NOHELIA VERDUGO : + + Interpretation Summary The left ventricle is normal in size. There is mild concentric left ventricular hypertrophy. The ejection fraction is estimated to be 40-45%. Previously LVEF 45 to 50%. There is a significant dyssynchronous contraction pattern due to the paced rhythm. There is inferior wall hypokinesis. No significant change in wall motion abnormalities from the previous study. Diastolic parameters suggest probable elevated filling pressures. The right ventricle is normal size. Right ventricular systolic function is mildly reduced. Right ventricular systolic function has not changed since previous exam. There is a pacemaker lead in the right ventricle. There is mild to moderate mitral regurgitation. Previously moderate MR. There is a bioprosthetic aortic valve. The prosthetic aortic valve is well-seated. Visually bioprosthetic aortic valve opening is preserved. The peak aortic velocity is 2.75 m/sec. The aortic valve mean gradient is 17.2 mmHg. The peak aortic velocity on the previous exam was 2.76 m/sec. sev ratio: 0.28 There is mild tricuspid regurgitation. Compared to the prior echo exam, there has been no change in TR severity. The right ventricular systolic pressure is estimated to be at least 23 mmHg based on an estimated right atrial pressure of 3 mm Hg. Procedure: A two-dimensional transthoracic echocardiogram with color flow and Doppler was performed. The study quality was technically adequate. Comparison is made with the echocardiogram of 05/15/2022. The patient has a paced rhythm. The heart rate ranged between 71-81 bpm during the study. Left Ventricle: The left ventricle is normal in size. There is mild concentric left ventricular hypertrophy. There is no thrombus. The ejection fraction is estimated to be 40-45%. There is a significant dyssynchronous contraction pattern due to the paced rhythm. There is inferior wall hypokinesis. No significant change in wall motion abnormalities from the previous study. MV E/A: 0.54 Med Peak E' Petros: 3.6 cm/sec E/E' med: 18.2. Diastolic parameters suggest probable elevated filling pressures. Right Ventricle: The right ventricle is normal size. There is a pacemaker lead in the right ventricle. Right ventricular systolic function is mildly reduced. Right ventricular systolic function has not changed since previous exam. Atria: The left atrium is severely dilated. There is a catheter/pacemaker lead seen in the right atrium. Right atrial size is normal. There is no Doppler evidence for an interatrial shunt. The interatrial septum bows toward right atrium consistent with elevated left atrial pressure. Mitral Valve: There is mild to moderate mitral annular calcification. The mitral valve leaflets are mildly calcified. The mitral valve chordae are thickened and/or calcified. There is mild to moderate mitral regurgitation. Aortic Valve: There is a bioprosthetic aortic valve. The prosthetic aortic valve is well-seated. Visually bioprosthetic aortic valve opening is preserved. The peak aortic velocity is 2.75 m/sec. The aortic valve mean gradient is 17.2 mmHg. The peak aortic velocity on the previous exam was 2.76 m/sec. No aortic regurgitation is present. Tricuspid Valve: The tricuspid valve is normal. There is mild tricuspid regurgitation. The right ventricular systolic pressure is estimated to be at least 23 mmHg based on an estimated right atrial pressure of 3 mm Hg. Compared to the prior echo exam, there has been no change in TR severity. Pulmonic Valve: The pulmonic valve leaflets are thin and pliable; valve motion is normal. There is no pulmonic valvular regurgitation. Great Vessels: The aortic root is normal size. The dimensions of the ascending aorta are normal. The IVC is of normal diameter and collapses greater than 50% with a sniff. This suggests a low right atrial pressure of 3 mm Hg. Pericardium/ Pleura There is no pericardial effusion. There is no pleural effusion. MMode/2D Measurements & Calculations LVIDd: 5.3 cm LVOT diam: 2.0 cm LVIDs: 3.9 cm Ao root diam: 3.2 cm FS: 26.5 % asc Aorta Diam: 3.2 cm EPSS: 1.3 cm Ao Arch Diam (Prox Trans): 2.5 cm IVSd: 1.2 cm LVPWd: 0.98 cm LV vital. diameter/BSA (cm/m^2): 2.9 LV sys. diameter/BSA (cm/m^2): 2.2 LA A2 area: 23.3 cm2 RA long axis: 4.9 cm LA A4 area: 21.6 cm2 RA area: 15.1 cm2 LA length (vol): 5.5 cm RA vol: 39.8 ml LA vol: 77.1 ml RA : 22.1 ml/m2 LA vol index: 42.8 ml/m2 IVC diam: 1.3 cm RVD1 (basal): 3.5 cm RVD2 (mid): 3.1 cm TAPSE: 1.5 cm Doppler Measurements & Calculations Ao V2 max: 275.8 cm/sec LVOT Max Petros: 70.7 cm/sec Ao V2 mean: 196.1 cm/sec LV V1 max P.0 mmHg Ao max P.6 mmHg LV V1 VTI: 15.0 cm Ao mean P.2 mmHg KARLI(I,D): 0.92 cm2 Ao V2 VTI: 52.7 cm KARLI(V,D): 0.83 cm2 sev ratio: 0.28 KARLI indexed to BSA (cm^2/m^2): 0.51 MV E max petros: 66.3 cm/sec TR max petros: 224.0 cm/sec MV A max petros: 121.8 cm/sec TR max P.1 mmHg MV E/A: 0.54 PA V2 max: 108.2 cm/sec Med Peak E' Petros: 3.6 cm/sec PA V2 mean: 70.6 cm/sec E/E' med: 18.2 PA mean P.4 mmHg Lat Peak E' Petros: 5.3 cm/sec PA pr(Accel): 49.9 mmHg E/E' lat: 12.5 E/e' average: 15.3 MV dec time: 0.17 sec MVA(VTI): 1.4 cm2 MV V2 mean: 79.3 cm/sec SV(LVOT): 48.3 ml MV mean P.9 mmHg MV V2 VTI: 33.8 cm Reading Physician:11:40 AM
--- NOTE | 2024-01-26 13:35 | DI.US.S_ITS ---
PROCEDURE: US CAROTID DOPPLER BI INDICATIONS: BILATERAL CAROTID ARTERY STENOSIS TECHNIQUE: Color and pulse Doppler interrogation was performed of both carotid systems, with image documentation and velocity measurements. COMPARISON: [facility], , CAROTID ARTERY DOPPLER BILAT, 06/27/2012, 9:05. FINDINGS: Stenosis calculations are based on SRU (Society of Radiologists in Ultrasound) criteria. Right side: Brachial blood pressure: 124 mm Hg. Common carotid artery peak systolic velocity: 96 cm/sec. Internal carotid artery peak systolic velocity: 81 cm/sec. Internal carotid artery end diastolic velocity: 31 cm/sec. External carotid artery peak systolic velocity: 79 cm/sec. ICA/CCA peak systolic ratio: 0.8 . Humphrey scale imaging description: Mild scattered atherosclerotic plaque Percent internal carotid artery stenosis: Less than 50% stenosis . Vertebral artery: Flow direction is antegrade. Left side: Brachial blood pressure: 107 the mm Hg. Common carotid artery peak systolic velocity: 94 cm/sec. Internal carotid artery peak systolic velocity: 115 cm/sec. Internal carotid artery end diastolic velocity: 33 cm/sec. External carotid artery peak systolic velocity: 72 cm/sec. ICA/CCA peak systolic ratio: 1.2 . Humphrey scale imaging description: [id number] atherosclerotic plaque Percent internal carotid artery stenosis: Less than 50% stenosis . Vertebral artery: Flow direction is antegrade. IMPRESSION: 1. Bilateral internal carotid arteries demonstrate less than 50% stenosis. 2. Greater than 10 mm Hg difference in the bilateral brachial pressures is nonspecific and may represent a hemodynamically significant subclavian artery stenosis. If there is clinical suspicion, consider a CTA chest for further evaluation. Dictated by: Adrienne Lemons M.D. on 01/26/2024 at 16:59 Approved by: Adrienne Lemons M.D. on 01/26/2024 at 17:00
== END ==
PROVIDERS: Family Provider Family Medicine; PCP Physician Assistant; Referring Provider Internal Medicine Cardiovascular Disease; Visit Provider Internal Medicine Cardiovascular Disease
DX: I65.23 Occlusion and stenosis of bilateral carotid arteries (principal); I08.1 Rheumatic disorders of both mitral and tricuspid valves; Z95.1 Presence of aortocoronary bypass graft; Z95.0 Presence of cardiac pacemaker; Z95.2 Presence of prosthetic heart valve
CPT/HCPCS: 93306; 93880

== ENCOUNTER → 2024-06-14 08:52 | Outpatient (CLI) | payer MEDICARE, OTHER, SELFPAY ==
[2024-06-14 10:30] LABS: Magnesium 2.1 mg/dL (1.6-2.3)
== END ==
PROVIDERS: Family Provider Family Medicine; PCP Family Medicine; Referring Provider Family Medicine; Visit Provider Family Medicine
DX: E83.42 Hypomagnesemia (principal)
CPT/HCPCS: 36415; 83735

== ENCOUNTER → 2024-09-28 12:01 | Outpatient (CLI) | payer MEDICARE, OTHER, SELFPAY ==
--- NOTE | 2024-09-28 12:02 | DI.ECHO.S_ITS ---
[facility]---------+ [facility] : : [address] : [place] : : [id number] : : Phone: [phone] Echocardiogram Report + + :Name: LUIS DE LEÓN Study Date: 09/28/2024 Height: 66 in : :[facility] ReadingLocation: Weight: 142 lb : : Gender: Male BSA: 1.7 m2 : :: 1945 Age: 78 yrs BP: 122/83 mmHg: :Reason For Study: CHRONIC SYSTOLIC HEART FAILURE : :Ordering Physician: KARTIK, : :NOHELIA Performed By: Krystle Lopez : :Referring: NOHELIA VERDUGO : + + Interpretation Summary The left ventricle is normal in size. The ejection fraction is estimated to be 40-45%. There has been no significant change in LVEF since the previous exam. There is a significant dyssynchronous contraction pattern due to the paced rhythm. There is inferior wall hypokinesis. Distal inferior septal hypokinesis Compared to the prior exam, the left ventricular wall motion has not changed. MV E/A: 0.51 Med Peak E' Petros: 2.6 cm/sec E/E' med: 24.5, suggestive of elevated LV filling pressure, no significant change from the previous study. Borderline right ventricular enlargement. Visually RV function appears to be preserved. There is a pacemaker lead in the right ventricle. There is mild to moderate mitral regurgitation. Compared to the prior echo study, there has been no change in the severity of mitral regurgitation. There is a bioprosthetic aortic valve. The prosthetic aortic valve is well-seated. The peak aortic velocity is 2.9 m/sec. The aortic valve mean gradient is 19 mmHg. The peak aortic velocity on the previous exam was 2.75 m/sec. There is no hemodynamically significant valvular aortic stenosis. There is moderate tricuspid regurgitation. Previously mild to moderate TR. The right ventricular systolic pressure is estimated to be at least 27 mmHg based on an estimated right atrial pressure of 3 mm Hg. There is moderate pulmonic regurgitation. Procedure: A two-dimensional transthoracic echocardiogram with color flow and Doppler was performed. The study quality was technically adequate. Comparison is made with the echocardiogram of 01/26/2024. The patient was in sinus rhythm with heart rates between 70-83 bpm during the exam. The patient has a paced rhythm. Left Ventricle: The left ventricle is normal in size. Left ventricular wall thickness is at the upper limits of normal. There is no thrombus. The ejection fraction is estimated to be 40-45%. There has been no significant change since the previous exam. There is a significant dyssynchronous contraction pattern due to the paced rhythm. There is inferior wall hypokinesis. Distal inferior septal hypokinesis. Compared to the prior exam, the left ventricular wall motion has not changed. MV E/A: 0.51 Med Peak E' Petros: 2.6 cm/sec E/E' med: 24.5. Diastolic parameters suggest probable elevated filling pressures. Right Ventricle: There is a pacemaker lead in the right ventricle. Borderline right ventricular enlargement. Visually RV function appears to be preserved. Atria: The left atrium is moderately dilated. The left atrium has mildly decreased in size since the prior echo exam. Right atrial size is normal. There is a catheter/pacemaker lead seen in the right atrium. There is no Doppler evidence for an interatrial shunt. The interatrial septum bows toward right atrium consistent with elevated left atrial pressure. Mitral Valve: There is mild to moderate mitral annular calcification. The mitral valve leaflets are mildly calcified. The mitral valve chordae are thickened and/or calcified. There is mild to moderate mitral regurgitation. Compared to the prior echo study, there has been no change in the severity of mitral regurgitation. Aortic Valve: There is a bioprosthetic aortic valve. The prosthetic aortic valve is well-seated. The peak aortic velocity is 2.9 m/sec. The aortic valve mean gradient is 19 mmHg. The peak aortic velocity on the previous exam was 2.75 m/sec. There is no hemodynamically significant valvular aortic stenosis. No aortic regurgitation is present. Tricuspid Valve: The tricuspid valve is normal. There is moderate tricuspid regurgitation. The right ventricular systolic pressure is estimated to be at least 27 mmHg based on an estimated right atrial pressure of 3 mm Hg. Pulmonic Valve: The pulmonic valve leaflets are thin and pliable; valve motion is normal. There is moderate pulmonic regurgitation. Great Vessels: The aortic root is normal size. The dimensions of the ascending aorta are normal. The IVC is of normal diameter and collapses greater than 50% with a sniff. This suggests a low right atrial pressure of 3 mm Hg. Pericardium/ Pleura There is no pericardial effusion. There is no pleural effusion. MMode/2D Measurements & Calculations LVIDd: 5.4 cm LVOT diam: 2.0 cm LVIDs: 4.0 cm Ao root diam: 2.8 cm FS: 25.7 % asc Aorta Diam: 3.5 cm EPSS: 1.4 cm Ao Arch Diam (Prox Trans): 2.7 cm IVSd: 1.1 cm LVPWd: 0.93 cm LV vital. diameter/BSA (cm/m^2): 3.1 LV sys. diameter/BSA (cm/m^2): 2.3 LA A2 area: 22.5 cm2 RA long axis: 4.3 cm LA A4 area: 22.6 cm2 RA area: 14.0 cm2 LA length (vol): 5.7 cm RA vol: 38.4 ml LA vol: 76.5 ml RA : 22.2 ml/m2 LA vol index: 44.2 ml/m2 IVC diam: 1.3 cm RVD1 (basal): 4.0 cm RVD2 (mid): 3.1 cm TAPSE: 1.4 cm Doppler Measurements & Calculations Ao V2 max: 290.3 cm/sec LVOT Max Petros: 77.6 cm/sec Ao V2 mean: 205.2 cm/sec LV V1 max P.4 mmHg Ao max P.1 mmHg LV V1 VTI: 15.5 cm Ao mean P.4 mmHg KARLI(I,D): 0.89 cm2 Ao V2 VTI: 53.8 cm KARLI(V,D): 0.83 cm2 sev ratio: 0.29 KARLI indexed to BSA (cm^2/m^2): 0.52 MV E max petros: 64.2 cm/sec TR max petros: 242.6 cm/sec MV A max petros: 125.6 cm/sec TR max P.5 mmHg MV E/A: 0.51 PA V2 max: 113.2 cm/sec Med Peak E' Petros: 2.6 cm/sec PA V2 mean: 72.5 cm/sec E/E' med: 24.5 PA mean P.4 mmHg Lat Peak E' Petros: 5.0 cm/sec PA pr(Accel): 19.1 mmHg E/E' lat: 12.9 E/e' average: 18.7 MV dec time: 0.20 sec SV(LVOT): 48.0 ml Reading Physician:04:03 PM
== END ==
PROVIDERS: Family Provider Family Medicine; PCP Family Medicine; Referring Provider Internal Medicine Cardiovascular Disease; Visit Provider Internal Medicine Cardiovascular Disease
DX: I08.1 Rheumatic disorders of both mitral and tricuspid valves (principal); I50.22 Chronic systolic (congestive) heart failure; I25.5 Ischemic cardiomyopathy; Z95.2 Presence of prosthetic heart valve
CPT/HCPCS: 93306

== ENCOUNTER → 2025-10-31 15:31 | Outpatient (CLI) | payer MEDICARE, OTHER, SELFPAY ==
[2025-10-31 17:00] LABS: Magnesium 2.0 mg/dL (1.6-2.3)
[2025-10-31 17:31] LABS: Thyroid Stimulating Hormone 1.25 uIU/mL (0.47-4.68)
== END ==
PROVIDERS: Family Provider Family Medicine; PCP Family Medicine; Referring Provider Internal Medicine Cardiovascular Disease; Visit Provider Internal Medicine Cardiovascular Disease
DX: I48.0 Paroxysmal atrial fibrillation (principal)
CPT/HCPCS: 36415; 83735; 84443

== ENCOUNTER 2025-11-19 16:37 | Emergency (ER) | payer MEDICARE, OTHER, SELFPAY ==
[2025-11-19 16:54] VITALS: BP 123/61; PULSE 68; RESP 14; TEMP 36.6; O2SAT 97; BMI 23.7
[2025-11-19 17:40] LABS: Appearance Urine UA SL CLOUDY; Bilirubin Urine UA NEGATIVE (NEGATIVE); Glucose Urine UA 3+ g/dL (Negative); Ketones Urine UA NEGATIVE (NEGATIVE); Leukocyte Esterase Urine UA NEGATIVE (NEGATIVE); Nitrite Urine UA NEGATIVE (Negative); Occult Blood Urine UA 3+ (Negative); Protein Urine UA 2+ (Negative); Urobilinogen Urine UA 0.2 E.U./dL (0.2); pH Urine UA 6.0 (4.5-8.0)
[2025-11-19 17:41] LABS: Color Urine UA Dark Yellow; Specific Gravity Urine UA 1.005 (1.000-1.035)
[2025-11-19 17:42] LABS: Culture Indicated Urine Cult Not Indicated
[2025-11-19 20:00] VITALS: BP 166/76; PULSE 60; RESP 16; O2SAT 98
--- NOTE | 2025-11-19 20:58 | DI.CT.S_ITS ---
PROCEDURE: CT ABDOMEN PELVIS WO CON INDICATIONS: hematuria TECHNIQUE: Axial sections were acquired from the lung bases to the pubic symphysis. Coronal and sagittal reformats were performed. For radiation dose reduction, the following was used: automated exposure control, adjustment of mA and/or kV according to patient size. COMPARISON: [facility], CT, CT ANGIO CHEST ABDOMEN, 02/28/2024, 12:14. FINDINGS: Image quality: Diagnostic. Lower Chest: Heart is enlarged.. URINARY: Right Kidney: No stones or hydronephrosis. Right Ureter: No hydroureter. Left Kidney: No stones or hydronephrosis. Simple left cyst. Left Ureter: No hydroureter. Bladder: Bladder trabeculations as well as. No stones. ABDOMEN: Liver: No contour-deforming solid mass. Gallbladder: No radiopaque gallstones or wall thickening. Biliary ducts: No biliary dilation. Pancreas: No ductal dilation. Spleen: Size is within normal limits. Adrenal Glands: No adrenal nodules. Stomach and Bowel: Normal colonic caliber, without significant wall thickening. Colonic diverticula without inflammatory change. Peritoneum: No abnormal intraperitoneal fluid. No free air. Ventral Wall: No hernia. Abdominal Nodes: No enlarged retroperitoneal or mesenteric lymph nodes. Vessels: Aorta and inferior vena cava are normal in size. PELVIS: Pelvic Organs: Prostate gland is enlarged. Testicular hydroceles. Pelvic Nodes: Unremarkable. Miscellaneous: No inguinal hernias are seen. Bones: T10, L1, L3 compression deformities, unchanged. IMPRESSION: No obstructing stones or hydronephrosis. Bladder trabeculations suggestive chronic outlet obstruction. Prostate gland is enlarged. Dictated by: Sarah De León M.D. on 11/19/2025 at 21:44 Approved by: Sarah De León M.D. on 11/19/2025 at 21:49
--- NOTE | 2025-11-19 22:39 | ED.MALEGU ---
HPI - Male Genitourinary General Chief complaint: Urogenital-Male Stated complaint: Uro genital male Time Seen by Provider: 11/19/25 16:46 Source: patient Mode of arrival: Ambulatory History of Present Illness HPI Narrative: Patient is an 80-year-old man who presents to the ER today for concerns of hematuria. Past medical history significant for atrial fibrillation on Eliquis, pacemaker, hypertension, hyperlipidemia, GERD, history of nephrolithiasis. He states that he has dysuria, urgency and frequency. No chest pain, dyspnea, diaphoresis. No lightheadedness, presyncope, or syncopal events. Related Data Home Medications ?Medication ?Instructions ?Recorded ?Confirmed multivitamin 1 tab PO DAILY 04/05/19 11/06/25 acetaminophen 500 mg tablet 1,000 mg PO TID PRN Pain (Scale 06/10/22 11/06/25 Score 1-3) aspirin 81 mg tablet,delayed 81 mg PO DAILY 04/30/25 11/06/25 release apixaban 5 mg tablet (Eliquis) 5 mg PO BID 11/06/25 11/06/25 Previous Rx's ?Medication ?Instructions ?Recorded atorvastatin 20 mg tablet 20 mg PO ONCE PM #100 tabs 04/30/25 losartan 25 mg tablet (Cozaar) 25 mg PO DAILY #100 tabs 04/30/25 metoprolol succinate 25 mg 25 mg PO BID #180 tabs 04/30/25 tablet,extended release 24 hr omeprazole 20 mg capsule,delayed 20 mg PO DAILY #90 caps 04/30/25 release tamsulosin 0.4 mg capsule 0.8 mg (2 x 0.4 mg) PO DAILY #180 06/29/25 caps Jardiance 25 mg tablet 12.5 mg (1/2 x 25 mg) PO DAILY 11/16/25 (empagliflozin) #180 tabs Allergies Allergy/AdvReac Type Severity Reaction Status Date / Time No Known Drug Allergies Allergy Verified 11/19/25 16:54 Review of Systems Review of Systems ROS Unobtainable: All systems reviewed & are unremarkable except as noted in HPI and below Patient History Medical History (Updated 11/19/25 @ 20:58 by Lissette Mays MD) Cardiomyopathy Encounter for subsequent annual wellness visit (AWV) in Medicare patient Hypomagnesemia Compression fracture of T7 vertebra Macias esophagus Osteopenia Diabetes mellitus, type II Hypertension Kidney stones Pacemaker Atrial fibrillation CAD (coronary artery disease) Surgical History H/O aortic valve replacement Hx of CABG Social History household members: spouse Smoking Status: Current every day smoker alcohol intake: former Smoking Status: Current every day smoker Exam Narrative Exam Narrative: Vitals: Afebrile, normal vitals signs Gen: Well developed, well nourished, no acute distressed Card: Regular, no murmurs, rubs, or gallops Pulm: No increased work of breathing, clear to auscultation bilateraly Abd: Soft nondistended, nontendern to palpation Ext: No edema in bilaterally lower extremity Neuro: A&O x 4, CN grossly intact, moving all 4 extremities spontaneous Psych: Appropriate Initial Vital Signs Initial Vital Signs: Vital Signs Temperature 97.8 F 11/19/25 16:54 Pulse Rate 68 11/19/25 16:54 Respiratory Rate 14 11/19/25 16:54 Blood Pressure 123/61 11/19/25 16:54 Pulse Oximetry 97 11/19/25 16:54 Oxygen Delivery Method Room Air 11/19/25 16:54 Course Orders Ordered: ED Orders 11/19/25 17:12 Urinalysis and Microscopic Stat 11/19/25 20:58 CT abdomen pelvis wo con Stat Vital Signs Vital signs: Vital Signs - 8 hr 11/19/25 16:54 11/19/25 20:00 Temperature 97.8 F Pulse Rate 68 60 Respiratory Rate 14 16 Blood Pressure 123/61 166/76 H Pulse Oximetry 97 98 Oxygen Delivery Method Room Air Room Air MDM - Male Genitourinary Lab Data Labs: Lab Results 11/19/25 Range/Units 17:12 Urine Color Dark yellow Urine Appearance Sl cloudy Urine pH 6.0 (4.5-8.0) Ur Specific [place] 1.005 (1.000-1.035) Urine Protein 2+ H (Negative) Urine Glucose (UA) 3+ H (Negative) g/dL Urine Ketones Negative (NEGATIVE) Urine Occult Blood 3+ H (Negative) Urine Nitrate Negative (Negative) Urine Bilirubin Negative (NEGATIVE) Urine Urobilinogen 0.2 (0.2) E.U./dL Ur Leukocyte Esterase Negative (NEGATIVE) Urine RBC 30-100/hpf H (0-5/HPF) Urine WBC 0-1/hpf (0-5/HPF) Ur Squamous Epith Cells 0-1 /hpf (0-5/HPF) Amorphous Sediment 3+ Urine Bacteria Occasional (0-1) (None) Urine Mucus 1+ H (Negative) Ur Culture Indicated? Cult not indicated Vol Urine Centrifuged 10ml (spun) Imaging Data CT scan - abdomen/pelvis: Radiologist's Impression: PROCEDURE: CT ABDOMEN PELVIS WO CON INDICATIONS: hematuria TECHNIQUE: Axial sections were acquired from the lung bases to the pubic symphysis. Coronal and sagittal reformats were performed. For radiation dose reduction, the following was used: automated exposure control, adjustment of mA and/or kV according to patient size. COMPARISON: [facility], CT, CT ANGIO CHEST ABDOMEN, 02/28/2024, 12:14. FINDINGS: Image quality: Diagnostic. Lower Chest: Heart is enlarged.. URINARY: Right Kidney: No stones or hydronephrosis. Right Ureter: No hydroureter. Left Kidney: No stones or hydronephrosis. Simple left cyst. Left Ureter: No hydroureter. Bladder: Bladder trabeculations as well as. No stones. ABDOMEN: Liver: No contour-deforming solid mass. Gallbladder: No radiopaque gallstones or wall thickening. Biliary ducts: No biliary dilation. Pancreas: No ductal dilation. Spleen: Size is within normal limits. Adrenal Glands: No adrenal nodules. Stomach and Bowel: Normal colonic caliber, without significant wall thickening. Colonic diverticula without inflammatory change. Peritoneum: No abnormal intraperitoneal fluid. No free air. Ventral Wall: No hernia. Abdominal Nodes: No enlarged retroperitoneal or mesenteric lymph nodes. Vessels: Aorta and inferior vena cava are normal in size. PELVIS: Pelvic Organs: Prostate gland is enlarged. Testicular hydroceles. Pelvic Nodes: Unremarkable. Miscellaneous: No inguinal hernias are seen. Bones: T10, L1, L3 compression deformities, unchanged. IMPRESSION: No obstructing stones or hydronephrosis. Bladder trabeculations suggestive chronic outlet obstruction. Prostate gland is enlarged. Dictated by: Sarah De León M.D. on 11/19/2025 at 21:44 Approved by: Sarah De León M.D. on 11/19/2025 at 21:49 MDM Narrative Medical decision making narrative: Patient is an 80 year old man on Eliquis and aspirin who presents with concerns for hematuria. -- EMR Review: Reviewed cardiology note and ER encounter for atrial fibrillation. -- Differential diagnosis: UTI, bladder carcinoma, renal cell carcinoma, other malignancy, BPH, prostatitis, medication adverse effect, other. -- Labs: No renal other urinalysis not consistent with urinary tract infection. There were hematuria noted. -- Imaging: CT without any masses, stones, patient has an enlarged protate. -- EKG: Not indicated. -- Consults: None. Summary: Hematuria in the setting of anticoagulation raises concern for benign and malignant etiologies. Infectious causes are less likely given a urinalysis not consistent with UTI. The patient has a prior CT abdomen from 2022 and a renal ultrasound, both of which were reviewed during this encounter. I discussed with the patient the risks and benefits of additional imaging and my concerns regarding potential malignancy as a cause of his hematuria, although it remains most likely related to his anticoagulation. Current imaging did not reveal renal masses. An enlarged prostate may be contributory. Given the patient?s stability, absence of alarming findings, and no indication for emergent intervention, outpatient follow up and further evaluation are appropriate. Discharge Plan Departure Patient Disposition: Home Clinical Impression: Hematuria Instructions: DI for Hematuria Activity Restrictions/Additional Instructions: You were seen in the emergency department for blood in your urine. In the ED: - Urinalysis reviewed blood in your urine but was not consistent with a urinary tract infection - CT abdomen and pelvis showed significant changes in her bladder consistent with chronic bladder obstruction (typically due to enlarged prostate) Recommend: - Follow up with your primary care provider and Cardiology - Return to the ER if you develop worsening symptoms to include lightheadedness, chest pain, shortness of breath, fainting spells or any other concerning signs Prescriptions: No Action tamsulosin 0.4 mg capsule 0.8 mg PO DAILY Qty: 180 3RF Jardiance 25 mg tablet 12.5 mg PO DAILY Qty: 180 0RF atorvastatin 20 mg tablet 20 mg PO ONCE PM Qty: 100 3RF losartan [Cozaar] 25 mg tablet 25 mg PO DAILY Qty: 100 3RF metoprolol succinate 25 mg tablet extended release 24 hr 25 mg PO BID Qty: 180 3RF omeprazole 20 mg capsule,delayed release(DR/EC) 20 mg PO DAILY Qty: 90 3RF Eliquis 5 mg tablet 5 mg PO BID multivitamin Tablet 1 tab PO DAILY aspirin 81 mg tablet,delayed release (DR/EC) 81 mg PO DAILY acetaminophen 500 mg Tablet 1,000 mg PO TID PRN (Reason: Pain (Scale Score 1-3)) Referrals: Araceli Saldana DO [Primary Care Provider, Family Practice] Stand Alone Forms: Patient Portal/API
[2025-11-19 22:55] VITALS: BP 115/65; PULSE 60; RESP 18; O2SAT 98
== END 2025-11-19 22:55 | disposition home or self-care (01) ==
PROVIDERS: Emergency Provider Student in an Organized Health Care Education/Training Program; Family Provider Family Medicine; PCP Family Medicine
DX: R31.9 Hematuria, unspecified (principal); R39.15 Urgency of urination; R35.0 Frequency of micturition; I10 Essential (primary) hypertension
CPT/HCPCS: 74176; 81001; 99282; 99284